=== PATIENT | male | born 2000 | race Caucasian/White ===

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

== ENCOUNTER 2022-01-10 15:19 | Outpatient (CLI) | payer MEDICAID, SELFPAY ==
--- NOTE | 2022-01-10 16:19 | XRR_ITS ---
PROCEDURE INFORMATION: Exam: XR Chest Exam date and time: 01/10/2022 4:18 PM Age: 21 years old Clinical indication: Shortness of breath; Chest pressure; Patient HX: Chest pain, SOB, intermittent for 3 months; Additional info: R07.89 - other chest pain TECHNIQUE: Imaging protocol: XR of the chest. Views: 2 views. COMPARISON: No relevant prior studies available. FINDINGS: Lungs: Unremarkable. No consolidation. Pleural spaces: Unremarkable. No pleural effusion. No pneumothorax. Heart/Mediastinum: Unremarkable. No cardiomegaly. Bones/joints: Unremarkable. XR/XR chest 2V* [id number] IMPRESSION: No acute findings.
[2022-01-10 16:25] LABS: Lactate (Lactic Acid level) 0.9 mmol/L (0.5-2.2)
[2022-01-10 16:30] LABS: Lactate Dehydrogenase 151 U/L (135-225); Prolactin 9.01 ng/mL (4.0-15.2)
[2022-01-10 20:54] LABS: Testosterone Total 181.1 ng/dL (3-685)
[2022-01-10 20:55] LABS: Cortisol Random 8.18 ug/dL (2.47-19.5)
== END 2022-01-10 15:20 | disposition home or self-care (01) ==
PROVIDERS: Visit Provider Nurse Practitioner
DX: R07.89 Other chest pain (principal); R03.0 Elevated blood-pressure reading, without diagnosis of hypertension; R51.9 Headache, unspecified
CPT/HCPCS: 71046; 82533; 83605; 83615; 84146; 84403

== ENCOUNTER 2022-01-14 11:25 | Emergency (ER) | payer MEDICAID, SELFPAY ==
[2022-01-14] VITALS (7 sets, daily range): BP systolic 126–148; BP diastolic 76–89; PULSE 65–87; RESP 13–18; TEMP 37.2; O2SAT 96–100; BMI 34.8
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
--- NOTE | 2022-01-14 12:09 | ECG_ITS ---
[facility] Test Date: 2022-01-14 Pat Name: Jhonny Watt Department: Room: Gender: Male Lab Asst: : 2000 Requested By: Ryan Wilson Order Number: [id number] Carmela MD: Stacey Katz M.D. Measurements Intervals [place] Rate: 58 P: -13 UT: 112 QRS: 49 QRSD: 116 T: -16 QT: 391 QTc: 387 Interpretive Statements SINUS BRADYCARDIA WITH SHORT UT INTERVAL Nonspecific T wave inversion Compared to ECG 11/05/2021 21:49:56 Short UT interval now present Sinus rhythm no longer present Electronically Signed On 01-14-2022 18:13:53 CDT by Stacey Katz M.D. [id number]
[2022-01-14 12:35] LABS: Basophils # 0.1 10^3/uL (0.0-0.1); Basophils % 0.6 %; Eosinophils # 0.1 10^3/uL (0.0-0.8); Eosinophils % 0.6 %; Hematocrit 50.8 % (42.0-52.0); Hemoglobin 17.3 g/dL (11.7-16.6); Lymphocytes # 2.2 10^3/uL (1.5-6.5); Lymphocytes % 26.5 %; Mean Corpuscular HGB Conc 34.1 g/dL (30.0-36.0); Mean Corpuscular Hemoglobin 29.3 pg (28.0-34.0); Mean Corpuscular Volume 86.1 fl (80-94); Mean Platelet Volume 9.9 fL (7.4-10.4); Monocytes # 0.5 10^3/uL (0.2-0.9); Monocytes % 5.7 %; Neutrophils # 5.43 10^3/uL (1.8-8.0); Neutrophils % 65.9 %; Nucleated Red Blood Cells % 0 %; Platelet Count 268 10^3/cmm (130-400); Red Cell Distribution Width 12.6 % (12.1-15.1); White Blood Count 8.2 10^3/uL (4.5-13.0)
[2022-01-14] MEDS: aspirin 81 mg Chew Tablet 324 MG PO (12:43)
[2022-01-14] MEDS: lidocaine 2% viscous 15 ML, aluminum-mag hydrox-simethicon 30 ML, sucralfate oral liq 1 GM PO (12:45)
[2022-01-14] MEDS: sodium chloride 0.9% 1,000 ML 999 ML IV (12:48)
--- NOTE | 2022-01-14 12:53 | PC.NURSE ---
PT placed on continuos NIBP, SpO2, and CM
[2022-01-14 13:12] LABS: D Dimer 0.21 ug/mIFEU (0-0.59)
[2022-01-14 13:18] LABS: Troponin(5th) Baseline 9 ng/L (0-15)
--- NOTE | 2022-01-14 13:28 | XR_ITS ---
WS: [id number] Portable AP upright chest, 01/14/2022 Clinical Data: chest pain Comparison: PA and lateral chest, 01/10/2022. Findings: No nodules, masses or effusions are seen. The heart is normal. The pulmonary vascularity is not increased. No pneumonia or pneumothorax is seen. There are monitor leads on the chest wall. XR/XR chest 1V portable [id number] Impression: Negative chest.
--- NOTE | 2022-01-14 14:09 | ECG_ITS ---
[facility] Test Date: 2022-01-14 Pat Name: Jhonny Watt Department: Room: Gender: Male Senior Bi Developer: : 2000 Requested By: Ryan Wilson Order Number: [id number] Carmela MD: Stacey Katz M.D. Measurements Intervals [place] Rate: 65 P: 18 RI: 150 QRS: 3 QRSD: 120 T: 34 QT: 397 QTc: 413 Interpretive Statements SINUS RHYTHM MODERATE INTRAVENTRICULAR CONDUCTION DELAY [110+ ms QRS DURATION] MINIMAL VOLTAGE CRITERIA FOR LVH, CONSIDER NORMAL VARIANT [MEETS CRITERIA IN ONE OF: R(aVL), S(V1), R(V5), R(V5/V6)+S(V1)] NONSPECIFIC ST & T-WAVE ABNORMALITY Compared to ECG 01/14/2022 11:52:55 Intraventricular conduction delay now present T-wave abnormality now present Sinus bradycardia no longer present Short RI interval no longer present Myocardial infarct finding no longer present Electronically Signed On 01-14-2022 23:22:34 CDT by Stacey Katz M.D. [id number]
[2022-01-14 14:52] LABS: Troponin 5 2HR 8.49 ng/L (0-15)
[2022-01-14 15:18] LABS: Alanine Aminotransferase 29 U/L (0-41); Albumin Level 4.3 g/dL (3.5-5.2); Alkaline Phosphatase 48 IU/L (40-130); Blood Urea Nitrogen 11 mg/dL (6-20); Calcium 8.3 mg/dL (8.5-10.5); Carbon Dioxide 20 mmol/L (22-29); Chloride 104 mmol/L (98-107); Globulin 2.2 g/dL (1.3-4.6); Glomerular Filtration Rate 145.3 mL/min (90-130); Glucose 88 mg/dL (65-115); Lipase 19 U/L (13-60); NT Pro B Type Natriuretic Pept 45 pg/mL (0-125); Osmolality Calculated 285 mOsm/kg (285-295); Sodium 138 mmol/L (136-145); Total Bilirubin 0.6 mg/dL (0.15-1.2); Total Protein 6.5 g/dL (6.6-8.7)
[2022-01-14 15:21] LABS: Aspartate Amino Transferase 21 U/L (0-40)
[2022-01-14 16:18] LABS: Troponin 5 2HR Delta -0.51 ABS# (0-10)
--- NOTE | 2022-01-16 12:58 | DCPLANNER ---
e commerce manager had message to schedule an outpatient echo for patient. e commerce manager called phone number [phone], unable to speak with patient or her parents. e commerce manager left a voicemail for patient or parents to call counseling case manager back.
== END 2022-01-14 16:22 | disposition home or self-care (01) ==
PROVIDERS: Emergency Provider Emergency Medicine
DX: R07.9 Chest pain, unspecified (principal); F41.9 Anxiety disorder, unspecified; Z82.41 Family history of sudden cardiac death; Z83.2 Family history of diseases of the blood and blood-forming organs and certain disorders involving the immune mechanism
CPT/HCPCS: 71045; 80053; 83690; 83880; 84484; 85025; 85378; 93005; 96360; 99284; J7030

== ENCOUNTER 2022-04-09 08:01 | Outpatient (CLI) | payer MEDICAID, SELFPAY ==
--- NOTE | 2022-04-09 07:45 | USCV_ITS ---
Jhonny Watt Age: 21 Gender: M : 2000 Exam Date: 04/09/2022 08:22 Ordering Phys: Lyndsay BeverlyP-BC Technologist: Tyson Riggs Exam Location: [facility] [place] Indication: chest pain BP: 120 / 68 HR: 69 Rhythm: Sinus Technical Quality: Adequate MEASUREMENTS (Male / Female) Normal Values 2D ECHO LV Diastolic Diameter PLAX 3.7 cm 4.2 - 5.9 / 3.9 - 5.3 cm LV Systolic Diameter PLAX 2.1 cm IVS Diastolic Thickness 1.0 cm 0.6 - 1.0 / 0.6 - 0.9 cm IVS Systolic Thickness 1.3 cm LVPW Diastolic Thickness 1.0 cm 0.6 - 1.0 / 0.6 - 0.9 cm LVPW Systolic Thickness 1.3 cm LVOT Diameter 2.1 cm LV Ejection Fraction 2D Teich 75.4 % LV Ejection Fraction MOD 2C 62.9 % LV Ejection Fraction 2C AL 62.6 % LA Diameter 4.3 cm Aorta at Sinotubular Diameter 2.7 cm IVC Diameter 2.3 cm M-MODE Aortic Annulus Diameter 3.3 cm LA Ao Ratio MM 1.5 MV E Point Septal Separation 0.9 cm DOPPLER AV Peak Velocity 114.0 cm/s LVOT Peak Velocity 86.0 cm/s AV Area Cont Eq vti 2.6 cm squared AV Area Cont Eq pk 2.6 cm squared MV Area PHT 3.6 cm squared Mitral E to A Ratio 1.6 MV E' Velocity 54.0 cm/s Mitral E to MV E' Ratio 7.7 Mitral E to LV E' Lateral Ratio 6.1 Mitral E to LV E' Septal Ratio 10.5 TR Peak Velocity 282.3 cm/s TR Peak Gradient 31.9 mmHg TV Peak E Velocity 101.0 cm/s Right Atrial Pressure 3.0 mmHg Pulmonary Artery Systolic Pressu 34.9 mmHg PV Peak Velocity 115.0 cm/s FINDINGS Left Ventricle Normal left ventricular size and systolic function, EF 67 %. No regional wall motion abnormalities. Right Ventricle The right ventricle is normal in size and function. Right Atrium The right atrium is normal in size. Left Atrium The left atrium is normal in size. Mitral Valve No gross abnormalities noted Aortic Valve No gross abnormalities noted Tricuspid Valve Trace tricuspid valve regurgitation. Estimated pulmonary artery peak systolic pressure of 35 mmHg Pulmonic Valve Pulmonic valve not well visualized. Pericardium Normal pericardium without effusion. Aorta Normal ascending aorta dimension. IVC Inferior vena cava not visualized. CONCLUSIONS Normal left ventricular size and systolic function, EF 67 %. No regional wall motion abnormalities. Trace tricuspid valve regurgitation. Estimated pulmonary artery peak systolic pressure of 35 mmHg. Normal cardiac chamber sizes. No significant stenotic or relative lesions. There is no pericardial effusion. There are no intracardiac masses. Technically difficult study because of the poor ultrasonic window. Dr Efraín Gee MD FACC (Electronically Signed) Final Date: 09 April 2022 21:20 S
== END 2022-04-09 08:02 | disposition home or self-care (01) ==
PROVIDERS: PCP Nurse Practitioner; Visit Provider Nurse Practitioner
DX: R03.0 Elevated blood-pressure reading, without diagnosis of hypertension (principal); R07.89 Other chest pain
CPT/HCPCS: 93306

== ENCOUNTER 2022-11-12 10:59 | Outpatient (CLI) | payer MEDICAID, SELFPAY ==
--- NOTE | 2022-11-12 11:00 | MR_ITS ---
WS: [id number] MRI BRAIN WITHOUT CONTRAST HISTORY: R51.9 - Headache, unspecified COMPARISON: None available. TECHNIQUE: Diffusion imaging, multiplanar T1, T2 and FLAIR imaging obtained. No evidence for acute infarct or hemorrhage. Kelley-white matter differentiation is normal. There are v daysi few nonspecific T2 signal hyperintensities. No prior infarcts. There is a very small amount of si gnal abnormality within the RIGHT cerebellum which is probably related to motion artifact. No remote or acute infarcts are volume loss. Ventricles and extra-axial spaces are normal. No inferior displacement of cerebellar tonsils. The sella turcica and pituitary gland are unremarkabl e. Dural venous sinuses and [place] of [place] demonstrate no abnormality on this unenhanced studies. Paranasal sinuses: Clear. Mastoid air cells: Normal. Calvarium and scalp: Intact. MR/MR head wo con* [id number] IMPRESSION: 1. No acute infarcts or chronic infarcts. 2. Very minimal, nonspecific foci within the subcortical white matter. 3. No hydrocephalus.
[2022-11-12] MEDS: gadobenate dimeglumine 20 mL vial IV (12:13)
== END 2022-11-12 11:00 | disposition home or self-care (01) ==
LOC: RAD 10:59
PROVIDERS: PCP Nurse Practitioner; Visit Provider Specialist
DX: R51.9 Headache, unspecified (principal)
CPT/HCPCS: 70551; A9577

== ENCOUNTER 2022-11-30 21:59 | Emergency (ER) | payer MEDICAID, SELFPAY ==
[2022-11-30 22:03] VITALS: BP 172/98; PULSE 86; RESP 14; TEMP 36.7; O2SAT 98
--- NOTE | 2022-11-30 22:11 | ECG_ITS ---
[facility] Test Date: 2022-11-30 Pat Name: Jhonny Watt Department: Room: Gender: Male Hospital Receiving Clerk: : 2000 Requested By: Pilo Calvert Order Number: [id number] Carmela MD: Efraín Gee M.D. Measurements Intervals Odin Rate: 85 P: 0 MN: 161 QRS: -11 QRSD: 118 T: 24 QT: 343 QTc: 409 Interpretive Statements SINUS RHYTHM MODERATE INTRAVENTRICULAR CONDUCTION DELAY [110+ ms QRS DURATION] VOLTAGE CRITERIA FOR LVH [MEETS CRITERIA IN ONE OF: R(aVL), S(V1), R(V5), R(V5/V6)+S(V1)] NONSPECIFIC T-WAVE ABNORMALITY Compared to ECG 01/14/2022 14:16:12 No significant changes Electronically Signed On 11-30-2022 23:04:14 CDT by Efraín Gee M.D. [id number]
--- NOTE | 2022-11-30 22:11 | XRR_ITS ---
PROCEDURE INFORMATION: Exam: XR Chest Exam date and time: 11/30/2022 10:21 PM Age: 22 years old Clinical indication: Pain; Left-sided; Additional info: Chest pain TECHNIQUE: Imaging protocol: Radiologic exam of the chest. Views: 1 view. COMPARISON: CR XR chest 1V portable [id number] 01/14/2022 1:36 PM FINDINGS: Lungs: No consolidation. Pleural spaces: No pleural effusion. No pneumothorax. Heart/Mediastinum: No cardiomegaly. Bones/joints: Unremarkable. XR/XR chest 1V portable [id number] IMPRESSION: 1. No acute abnormality demonstrated. 2. There is no interval change from the prior examination.
--- NOTE | 2022-11-30 22:12 | ED_ITS ---
HPI - Chest Pain General: Chief Complaint: Chest Pain Stated Complaint: chest discomfort Time Seen by Provider: 11/30/22 22:11 History of Present Illness: 22-year-old male patient comes in today for complaints of chest discomfort and pain going from the midsternal area to his shoulder blade. Patient reports pains been going on and off for the past 2 to 3 months. Patient also reports some palpitations at times. Patient does have a history of GERD, anxiety and depression, and panic disorder. Patient does not take any routine medications. 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 Patient does not smoke, drink alcohol, or do any drugs. Symptoms were worse tonight which prompted patient to come into the ER. Associated symptoms: Deny abdominal pain, dyspnea or fever(s) Review of Systems Const: Denies: fever(s) Card: Reports: chest pain Resp: Denies: dyspnea GI: Denies: abdominal pain : Denies: flank pain Musc: Reports: other (Left shoulder pain) Skin/Breast: Denies: rash PFSH ED PFSH: Medical History (Updated 11/30/22 @ 23:30 by KEVIN Griggs) Asthma Carrier of hemochromatosis HFE gene mutation Family History Father Diabetes Thyroid disease Other Hypertension Social History Smoking and tobacco status: never smoked Second hand smoke exposure: Yes (Mother smokes outside) Physical Exam Const: COMMON NORMALS: alert HENMT: COMMON NORMALS: normocephalic HEAD & SCALP: normocephalic Neck/C-Spine: COMMON NORMALS: full ROM Resp: COMMON NORMALS: normal respiratory effort and clear to auscultation bilaterally AUSCULTATION: clear to auscultation bilaterally Cardio: COMMON NORMALS: regular rate, regular rhythm, S1 normal heart sound present and S2 normal heart sound present RATE: regular rate RHYTHM: regular rhythm HEART SOUNDS: S1 normal heart sound present and S2 normal heart sound present GI: COMMON NORMALS: Soft to palpation and non-tender PALPATION: Yes Soft to palpation Back/Pelvis: COMMON NORMALS: thoracic and lumbar spine normal to inspection Extremity: COMMON NORMALS: normal to inspection and full ROM Neuro: SENSORIUM/ORIENTATION: Yes alert Skin: COMMON NORMALS: turgor normal GENERAL SKIN EXAM: turgor normal Course Vital Signs: Vital signs: Vital Signs Temperature 98.1 F 11/30/22 22:03 Pulse Rate 86 11/30/22 22:03 Respiratory Rate 14 11/30/22 22:03 Blood Pressure 172/98 11/30/22 22:03 Pulse Oximetry 98 11/30/22 22:03 Oxygen Delivery Me thod 11/30/22 22:03 MDM - Chest Pain Medical Decision Making 22-year-old male patient comes in today for complaints of midsternal chest discomfort radiating to the left shoulder. On exam patient has some tenderness on palpation to the left trapezius. No chest wall tenderness or back tenderness is noted on palpation. Abdomen soft and nontender. Lungs are clear to auscultation. Heart rates regular. Vital signs are normal except for some elevation of blood pressure at 172 systolic. Differential diagnosis includes but not limited to GERD, gallbladder disease, hypertension, ACS, endocarditis. EKG showed a sinus rhythm with some LVH. CBC was unremarkable. CMP was unremarkable. Troponin was normal. Chest x-ray was normal. Reviewed exam with patient with recommendations for further evaluation. No signs of ACS was noted in the ER. No definitive diagnosis could be made at this time. Recommended recheck for hypertension and possible Holter monitor for further evaluation. Patient reported understanding and agreed to plan. Lab Data 11/30/22 22:30 11/30/22 22:30 Radiology Impressions Chest X-Ray 11/30/22 22:11 IMPRESSION: 1. No acute abnormality demonstrated. 2. There is no interval change from the prior examination. Laboratory Results WBC 10.0 10^3/uL (4.5-13.0) 11/30/22 22:30 RBC 5.63 10^6/uL (4.1-5.3) H 11/30/22 22:30 Hgb 16.3 g/dL (11.7-16.6) 11/30/22 22: Hct 48.9 % (42.0-52.0) 11/30/22 22:30 MCV 86.9 fl (80-94) 11/30/22 22: MCH 29.0 pg (28.0-34.0) 11/30/22: MCHC 33.3 g/dL (30.0-36.0) 11/30/22 22:30 RDW 11.9 % (12.1-15.1) L 11/30/22: Plt Count 260 10^3/cmm (130-400) 11/30/22 22: MPV 9.5 fL (7.4-10.4) 11/30/22 22: Neut % (Auto) 62.5 % 11/30/22: Lymph % (Auto) 26.4 % 11/30/22: [place] % (Auto) 9.6 % 11/30/22 22: Eos % (Auto) 0.6 % 11/30/22: Baso % (Auto) 0.5 % 11/30/22: Neut # (Auto) 6.28 10^3/uL (1.8-8.0) 11/30/22: Lymph # (Auto) 2.7 10^3/uL (1.5-6.5) 11/30/22: [place] # (Auto) 1.0 10^3/uL (0.2-0.9) H 11/30/22: Eos # (Auto) 0.1 10^3/uL (0.0-0.8) 11/30/22: Baso # (Auto) 0.1 10^3/uL (0.0-0.1) 11/30/22: Nucleated RBC % (auto) 0 % 11/30/22: Nucleated RBCs # 0.0 /100WBC 11/30/22 22: Sodium 141 mmol/L (136-145) 11/30/22: Potassium 3.5 mmol/L (3.5-5.1) 11/30/22: Chloride 100 mmol/L (98-107) 11/30/22: Carbon Dioxide 27 mmol/L (22-29) 11/30/22: Anion Gap 17.5 (5-19) 11/30/22 22: BUN 13 mg/dL (6-20) 11/30/22: Creatinine 0.7 mg/dL (0.7-1.2) 11/30/22 22: GFR Calculation 143.8 mL/min (90-130) H 03/12/23 22:30 Glucose 100 mg/dL (65-115) 11/30/22 22:30 Calculated Osmolality 292 mOsm/kg (285-295) 11/30/22 22:30 Calcium 9.8 mg/dL (8.5-10.5) 11/30/22 22:30 Total Bilirubin 0.7 mg/dL (0.15-1.2) 11/30/22 22:30 AST 31 U/L (0-40) 11/30/22 22:30 ALT 55 U/L (0-41) H 11/30/22 22:30 Alkaline Phosphatase 58 U/L (40-130) 11/30/22 22:30 Troponin T Gen 5 ng/L 6 ng/L (0-15) 11/30/22 22:30 Total Protein 7.5 g/dL (6.6-8.7) 11/30/22 22:30 Albumin 4.8 g/dL (3.5-5.2) 11/30/22 22:30 Globulin 2.7 g/dL (1.3-4.6) 11/30/22 22:30 Lipase 24 U/L (13-60) 11/30/22 22:30 EKG Data EKG 1: EKG interpretation date: 11/30/22 EKG interpretation time: 22:25 Prior EKG tracings: not available for review Interpretation: EKG shows a sinus rhythm with a regular rate at [address] elevation is noted. No ectopy is noted. Some mild LVH is interpreted by computer. No prior exam was available for comparison. Discharge Plan Discharge Patient Disposition: Home Clinical Impression: Anxiety about health Chest pain Qualifiers: Chest pain type: other chest pain Qualified Code(s): R07.89 - Other chest pain Condition: Stable Prescriptions: No Action propranolol 20 mg tablet 20 mg PO BID 90 Days Qty: 180 3RF Rx Instructions: Take 1 tablet twice daily (may start at 1/2 twice a day) All Day Allergy (cetirizine) 10 mg capsule 10 mg PO DAILY 30 Days Qty: 30 0RF famotidine 20 mg tablet 20 mg PO BID PRN (Reason: Acid Reflux) Discharge Orders: Discharge ED (Routine); Ordered 11/30/22 Ordered By: Pilo Corado Referrals: Lyndsay Beverly FNP-BC [Primary Care Provider] - Patient Instructions: Hypertension (ED) Activity Restrictions/Additional Instructions: Follow-up with primary care for further evaluation and treatment. They may want you to have a Holter monitor to monitor your rhythm of heart to rule out other abnormalities. They may also need to recheck your blood pressure and discuss treatment for hypertension. Return to the ER for new concerns such as high fever, increased shortness of breath, or new concerns. Coding Level of Care Code ED Vegetable Farmworker for Deepak Martinez
[2022-11-30 22:54] LABS: Basophils # 0.1 10^3/uL (0.0-0.1); Basophils % 0.5 %; Eosinophils # 0.1 10^3/uL (0.0-0.8); Eosinophils % 0.6 %; Hematocrit 48.9 % (42.0-52.0); Hemoglobin 16.3 g/dL (11.7-16.6); Lymphocytes # 2.7 10^3/uL (1.5-6.5); Lymphocytes % 26.4 %; Mean Corpuscular HGB Conc 33.3 g/dL (30.0-36.0); Mean Corpuscular Volume 86.9 fl (80-94); Mean Platelet Volume 9.5 fL (7.4-10.4); Monocytes % 9.6 %; Neutrophils # 6.28 10^3/uL (1.8-8.0); Neutrophils % 62.5 %; Nucleated Red Blood Cells % 0 %; Platelet Count 260 10^3/cmm (130-400); Red Blood Count 5.63 10^6/uL (4.1-5.3); Red Cell Distribution Width 11.9 % (12.1-15.1)
[2022-11-30 23:15] LABS: Alanine Aminotransferase 55 U/L (0-41); Albumin Level 4.8 g/dL (3.5-5.2); Alkaline Phosphatase 58 U/L (40-130); Anion Gap 17.5 (5-19); Aspartate Amino Transferase 31 U/L (0-40); Blood Urea Nitrogen 13 mg/dL (6-20); Calcium 9.8 mg/dL (8.5-10.5); Carbon Dioxide 27 mmol/L (22-29); Chloride 100 mmol/L (98-107); Globulin 2.7 g/dL (1.3-4.6); Glomerular Filtration Rate 143.8 mL/min (90-130); Glucose 100 mg/dL (65-115); Lipase 24 U/L (13-60); Osmolality Calculated 292 mOsm/kg (285-295); Potassium 3.5 mmol/L (3.5-5.1); Sodium 141 mmol/L (136-145); Total Bilirubin 0.7 mg/dL (0.15-1.2); Total Protein 7.5 g/dL (6.6-8.7)
[2022-11-30 23:16] LABS: Troponin T (5th) Once 6 ng/L (0-15)
== END 2022-11-30 23:58 | disposition home or self-care (01) ==
PROVIDERS: Emergency Provider Nurse Practitioner Family; PCP Nurse Practitioner
DX: R07.89 Other chest pain (principal); F41.9 Anxiety disorder, unspecified
CPT/HCPCS: 71045; 80053; 83690; 84484; 85025; 93005; 99285

== ENCOUNTER → 2022-12-02 16:14 | Outpatient (BNVA) | payer MEDICAID, SELFPAY | PROVIDERS: PCP Nurse Practitioner; Visit Provider Nurse Practitioner | DX: J06.9 Acute upper respiratory infection, unspecified (principal); J02.9 Acute pharyngitis, unspecified; R25.2 Cramp and spasm | CPT/HCPCS: 87070; 87071; 87486; 87581; 87633; 87880 ==

== ENCOUNTER → 2023-01-29 09:03 | Outpatient (BNVA) | payer MEDICAID, SELFPAY | PROVIDERS: PCP Nurse Practitioner; Visit Provider Nurse Practitioner | DX: J02.9 Acute pharyngitis, unspecified (principal) | CPT/HCPCS: 87070; 87880 ==

== ENCOUNTER → 2023-06-19 16:30 | Outpatient (BNVA) | payer MEDICAID, SELFPAY | PROVIDERS: PCP Nurse Practitioner; Visit Provider Nurse Practitioner | DX: J02.9 Acute pharyngitis, unspecified (principal) | CPT/HCPCS: 87880 ==

== ENCOUNTER → 2023-08-04 10:58 | Outpatient (BNVA) | payer MEDICAID, SELFPAY | PROVIDERS: PCP Nurse Practitioner; Visit Provider Nurse Practitioner | DX: J02.9 Acute pharyngitis, unspecified (principal) | CPT/HCPCS: 87070; 87426; 87880 ==

== ENCOUNTER → 2023-09-17 11:01 | Outpatient (BNVA) | payer MEDICAID, SELFPAY | PROVIDERS: PCP Nurse Practitioner; Visit Provider Nurse Practitioner | DX: J02.9 Acute pharyngitis, unspecified (principal) | CPT/HCPCS: 87880 ==